=== PATIENT | female | born 1980 | race Caucasian/White ===

== ENCOUNTER 2018-08-14 21:25 | Emergency (ER) | payer SELFPAY ==
[~2018-08-14] VITALS: Ht 170.2 cm; Wt 62.1 kg
[2018-08-14 21:48] VITALS: Ht 170.2 cm; Wt 62.1 kg
[2018-08-14 23:05] VITALS: BP 130/84
== END 2018-08-14 23:05 | disposition home or self-care (01) ==
LOC: ED 21:25
DX: J32.9 Chronic sinusitis, unspecified (principal); Z98.890 Other specified postprocedural states